=== PATIENT | female | born 1960 | race Caucasian/White ===

== ENCOUNTER 2016-12-03 06:51 | Day surgery (SDC) | payer OTHER ==
[~2016-12-03] VITALS: Ht 157.5 cm; Wt 44.0 kg
[~2016-12-03 06:51] MED LIST: ACYCLOVIR400 M1 PO; KEFLEX500 M4 PO; MELATONIN10 M9 PO; REMERON45 M1 PO; SYNTHROID75 MC1 PO; TRAZODONE HCL50 M1 PO
== END 2016-12-03 12:55 ==
LOC: SHSC 06:51 → SRG 06:51 → US 07:15 → PACU 10:58 → SHSC 11:45 → SRG 12:55
PROC: 0H5FXZZ Destruction of Right Hand Skin, External Approach (ICD-10-PCS; principal; 2016-12-03)
PROC: 0H5BXZZ Destruction of Right Upper Arm Skin, External Approach (ICD-10-PCS; 2016-12-03)
PROC: 0H5 Skin and Breast, Destruction (ICD-10-PCS; 2016-12-03)
PROC: 0H5GXZZ Destruction of Left Hand Skin, External Approach (ICD-10-PCS; 2016-12-03)
PROC: 0H5 Skin and Breast, Destruction (ICD-10-PCS; 2016-12-03)
PROC: 0H5LXZZ Destruction of Left Lower Leg Skin, External Approach (ICD-10-PCS; 2016-12-03)
DX: L90.5 Scar conditions and fibrosis of skin (principal); L91.0 Hypertrophic scar; E03.9 Hypothyroidism, unspecified; F41.9 Anxiety disorder, unspecified; F32.9 Major depressive disorder, single episode, unspecified; Z79.899 Other long term (current) drug therapy; Z98.890 Other specified postprocedural states; Z88.8 Allergy status to other drugs, medicaments and biological substances